=== PATIENT | male | born 1950 | race Caucasian/White ===

== ENCOUNTER 2023-05-24 12:11 | Outpatient (CLI) | payer MEDICARE, OTHER | END 2023-05-24 12:12 | disposition home or self-care (01) | LOC: CSHRAD 12:11 | PROVIDERS: ATTEND Emergency Medicine | DX: M54.42 Lumbago with sciatica, left side (principal); M47.816 Spondylosis without myelopathy or radiculopathy, lumbar region; M43.16 Spondylolisthesis, lumbar region | CPT/HCPCS: 72100 ==